=== PATIENT | male | born 1990 | race Caucasian/White ===

== ENCOUNTER 2021-06-08 09:53 | Emergency (ER) | payer OTHER, SELFPAY ==
[2021-06-08 10:41] VITALS: BP 131/90; PULSE 106; RESP 16; TEMP 36.6; O2SAT 99; BMI 20.7
--- NOTE | 2021-06-08 10:54 | ED_ITS ---
HPI - General Adult General Chief complaint: Ear Stated complaint: Rt ear pain, getting worse for days Time Seen by Provider: 06/08/21 10:01 Source: patient Mode of arrival: Ambulatory Limitations: no limitations History of Present Illness HPI narrative: Patient is a 30-year-old male. A couple days ago noticed some fullness in his right ear. He purchase some ear flush is [id number]. He did flush out wax from his right ear. This did seem to improve his symptoms somewhat however several days later started to have some increase in discomfort. Went to an outside facility. Was diagnosed with what sounds like otitis externa. Was placed on Ciprodex. Had an ear wick placed. Was told to remove the year within 24 hours which he did. Since that time he has noticed increased discomfort to his right ear. Now has swelling to the right side of his face. Also is having somewhat of a sore throat and potentially subjective fevers last evening. Related Data Previous Rx's Medication Instructions Recorded amoxicillin 875 mg-potassium 1 tab PO BID 7 Days #14 tab 06/08/21 clavulanate 125 mg tablet (Augmentin) ibuprofen 800 mg tablet 800 mg PO TID PRN #60 tab 06/08/21 Review of Systems Eyes Eyes: Reports as per HPI and Reports system reviewed and no additional complaints, except as documented ENT Ears, Nose, Mouth, and Throat: Reports system reviewed and no additional complaints, except as documented and Reports as per HPI Cardiovascular Cardiovascular: Reports system reviewed and no additional complaints, except as documented Respiratory Respiratory: Reports system reviewed and no additional complaints, except as documented Integumentary/Breasts Skin/Breast: Reports system reviewed and no additional complaints, except as documented Neurologic Neurologic: Reports system reviewed and no additional complaints, except as documented Hematologic/Lymphatic On Anticoagulants: No Patient History Medical History Otitis externa Social History Smoking Status: Current every day smoker Smoking Status: Current every day smoker tobacco type: vaping alcohol intake frequency: a few times a week Substance Use Type: does not use Exam Initial Vital Signs Initial Vital Signs: Vital Signs Temperature 97.9 F 06/08/21 10:41 Pulse Rate 106 H 06/08/21 10:41 Respiratory Rate 16 06/08/21 10:41 Blood Pressure 131/90 06/08/21 10:41 Pulse Oximetry 99 06/08/21 10:41 Const General: cooperative, healthy appearing, comfortable, well developed, well groomed and No acute distress Limitations: mental status not altered [facility] Head: normal to inspection and normocephalic Ears: EAC abnormal edema on the right and foreign body on the left (Cerumen) and TM abnormal (Unable to visualize TMs bilaterally secondary to swelling and also cerumen) Nose: external nose normal Face and sinus: normal facial exam and no erythema Mouth: oral mucosae normal, lip normal, tongue normal, moist mucous membranes and No malodorous breath Teeth and gingiva: dentition normal Throat: posterior oropharynx normal Eyes General: appearance normal, both eyes and all related structures Neck Lymphatic: lymphadenopathy (Right-sided anterior cervical and also pre-auricular lymphadenopathy) Resp Effort & Inspection: normal respiratory effort Auscultation: clear to auscultation bilaterally Cardio Rate: regular rate Rhythm: regular rhythm GI Inspection: normal to inspection Skin General: no rashes or lesions noted Neuro General: patient alert, patient awake and moves all extremities Extrem General: capillary refill normal Psych Appearance: grossly normal and well kempt Course Vital Signs Vital signs: Vital Signs - 8 hr 06/08/21 10:41 Temperature 97.9 F Pulse Rate 106 H Respiratory Rate 16 Blood Pressure 131/90 Pulse Oximetry 99 Medical Decision Making [facility] Narrative Medical decision making narrative: Patient's physical exam today is consistent with an otitis externa. He does have swelling of the right external auditory canal. Head is not 100% swollen shot however I do feel that an ear wake would be beneficial. There were no your wakes available here the emergency department so a small amount of gauze packing tape was inserted into the year and this appears to keep the area open. I will continue to have him on the ear drops. We will add an oral antibiotic on to his regimen. He was given return precautions and follow-up instructions. He expressed understanding and agreement. Discharge Plan Departure Patient Disposition: Home Clinical Impression: Otitis externa Instructions: DI for Otitis Externa Activity Restrictions/Additional Instructions: I do recommend that you continue to use the ear drops as previously directed. I am going to add a oral antibiotic point your regimen. Please start taking it as directed. Prescriptions: New ibuprofen 800 mg tablet 800 mg PO TID PRN (Reason: pain) Qty: 60 0RF amoxicillin-pot clavulanate [Augmentin] 875-125 mg tablet 1 tab PO BID 7 Days Qty: 14 0RF Stand Alone Forms: Work Release Note
[2021-06-08 12:03] VITALS: BP 138/91; PULSE 82; RESP 17; O2SAT 97
== END 2021-06-08 12:03 | disposition home or self-care (01) ==
PROVIDERS: Emergency Provider Emergency Medicine
DX: H60.91 Unspecified otitis externa, right ear (principal); F17.290 Nicotine dependence, other tobacco product, uncomplicated
CPT/HCPCS: 99281; 99283